=== PATIENT | female | born 1965 | race Caucasian/White ===

== ENCOUNTER 2023-07-10 13:19 | Outpatient (OUT) | payer BC, SELFPAY ==
[2023-07-10 10:20] LABS: Internal Control Within Normal Limits; Respiratory Syncytial Virus Not Detected (NOT DETECTE); SARS-CoV-2 Ag POSITIVE (NEGATIVE)
[2023-07-10 10:21] LABS: Influenza Virus A Antigen Negative; Influenza Virus B Antigen Negative; Internal Control Within Normal Limits
== END 2023-07-10 13:20 | disposition home or self-care (01) ==
LOC: LAB 13:19
PROVIDERS: PCP Family Medicine; Visit Provider Family Medicine
DX: R05.9 Cough, unspecified (principal)
CPT/HCPCS: 87420; 87804; 87811

== ENCOUNTER 2024-02-05 16:01 | Outpatient (OUT) | payer BC, SELFPAY ==
--- NOTE | 2024-02-05 16:05 | MM_ITS ---
Patient Name: SOCORRO HARRIS MR#: [id number] : 1965 Exam Date: 02/05/2024 Ordering Doctor: DR DENNIS JAMES M.D. RADIOLOGY REPORT PROCEDURE: MM TOMOSYNTHESIS SCREENING BI COMPARISON: MG MAMM SCREEN 3D JB CAD, 02/01/2023. MG MAMM SCREEN JB W CAD, 01/01/2020. MG MAMM SCREEN JB W CAD, 01/11/2017. MG MAMM JB DIAG W CAD DIG, 06/03/2015. INDICATIONS: screening Calculator Name NCI Breast Cancer Risk Assessment Tool 5 Year Breast Cancer Risk 1.00% Lifetime Breast Cancer Risk 6.80% Personal Breast Cancer No Personal Ovarian Cancer No Treatments None Family Cancers None LOCATION: [facility] BREAST COMPOSITION: The breasts are heterogeneously dense,which may obscure small masses. FINDINGS: DIAGNOSTIC CATEGORY 1--NEGATIVE. RIGHT BREAST: No significant suspicious finding. No significant change has occurred. LEFT BREAST: No significant suspicious finding. No significant change has occurred. RECOMMENDATIONS: ROUTINE MAMMOGRAM AND CLINICAL EVALUATION IN 12 MONTHS. PLEASE NOTE: A NORMAL MAMMOGRAM DOES NOT EXCLUDE THE POSSIBILITY OF BREAST CANCER. A CLINICALLY SUSPICIOUS PALPABLE LUMP SHOULD BE BIOPSIED. Dictated by: Alex Ornelas M.D. on 02/06/2024 at 13:39 Approved by: Alex Ornelas M.D. on 02/06/2024 at 13:43
== END 2024-02-05 16:02 | disposition home or self-care (01) ==
LOC: MAMMO 16:01
PROVIDERS: PCP Family Medicine; Visit Provider Family Medicine
DX: Z12.31 Encounter for screening mammogram for malignant neoplasm of breast (principal)
CPT/HCPCS: 77063; 77067

== ENCOUNTER 2025-05-21 13:11 | Outpatient (OUT) | payer BC, SELFPAY ==
--- OUTSIDE RECORDS SUMMARY | 2025-05-21 13:16 | XMS_ITS | Encounter Summary ---
Author Organization [facility] Address [address] [facility] [place] [address] Care Team Providers Care Janitorial Cleaner Name Role Phone Jaime Segura MD Primary Care Provider Jaime Segura MD Unavailable Jenny Srinivasan FUEL MANAGER Unavailable Jaime Segura MD Unavailable Encounter Details Date Type Department Care Team (Late Contact Info) Description 07/31/2023 Abstract [facility] [place] [facility] [address] [facility] 110 [place] [phone] Jaime Segura MD [address] [facility] 110 [place] [address] Social History Tobacco Use Types Packs/Day Years Used Date Smoking Tobacco: Never Smokeless Tobacco: Never Tobacco Cessation:Counseling Given: Not Answered Alcohol Use Standard Drinks/Week Comments Not Currently 0 (1 standard drink = 0.6 oz pure alcohol) caffeine: 1-2 cups per day soda Comments Unknown Sex and Gender Information Value Date Recorded Sex Assigned at Not on file Legal Sex Female 7:00 PM EDT Gender Identity Not on file Sexual Orientation Not on file documented as of this encounter Plan of Treatment Upcoming Encounters Date Type Department Care Team (Late Contact Info) Description 08/17/2025 2:30 PM EST Office Visit [facility] [place] [facility] [address] [facility] 110 [place] [phone] Jaime Segura MD [address] [facility] 110 [place] [address] documented as of this encounter Visit Diagnoses Not on filedocumented in this encounter Care Teams Janitorial Cleaner Relationship Specialty Start Date End Date Jaime Segura MD [address] [facility] 110 [place] [address] PCP - General Family Medicine 02/20/23 Jaime Segura MD [address] [facility] 110 [place] [address] PCP - [place] [employer] 03/15/23 Jenny Srinivasan NP [address] [facility] 110 [place] [address] PCP - [place] [employer] 03/15/25 Jaime Segura MD [address] [facility] 110 [place] [address] PCP - [place] [employer] 04/14/25 documented as of this encounter
--- OUTSIDE RECORDS SUMMARY | 2025-05-21 13:16 | XMS_ITS | Encounter Summary ---
Author Organization [facility] Address [address] [facility] [place] [address] Care Team Providers Care Securities Dealer Name Role Phone Jaime Segura MD Primary Care Provider Jaime Segura MD Unavailable Jenny Srinivasan LINER WORKER Unavailable Jaime Segura MD Unavailable Encounter Details Date Type Department Care Team (Late Contact Info) Description 08/06/2024 Abstract [facility] [place] [facility] 112 [facility] 110 [place] [phone] Jaime Segura MD [address] [facility] 110 [place], [place] [phone] Social History Tobacco Use Types Packs/Day Years Used Date Smoking Tobacco: Never Smokeless Tobacco: Never Alcohol Use Standard Drinks/Week Comments Not Currently [...] PM EST Office Visit [facility] [place] [facility] [address] [facility] 110 [place] [phone] Jaime Segura MD [address] [facility] 110 [place], [place] [phone] documented as of this encounter Visit Diagnoses Not on filedocumented in this encounter Care Teams Securities Dealer Relationship Specialty Start Date End Date Jaime Segura MD [address] [facility] 110 [place] [address] PCP - General Family Medicine 02/20/23 Jaime Segura MD [address] [facility] 110 [place] [address] PCP - [place] [employer] 03/15/23 Jenny Srinivasan NP [address] [facility] [address] [place] [address] PCP - [place] [employer] 03/15/25 Jaime Segura MD [address] [facility] 110 [place] [address] PCP - [place] [employer] 04/14/25 documented as of this encounter
--- OUTSIDE RECORDS SUMMARY | 2025-05-21 13:16 | XMS_ITS | Encounter Summary ---
Author Organization [facility] Address [address] [facility] [place] [address] Care Team Providers Care Cooler Tender Name Role Phone Jaime Segrua MD Primary Care Provider [phone] Jaime Segura MD Unavailable Jenny Srinivasan TEST OPERATOR Unavailable Jaime Segura MD Unavailable Encounter Details Date Type Department Care Team (Late st Contact Info) Description 07/10/2023 Orders Only [facility] [place] [facility] [address] [facility] [address] [place] [phone] A, Unknown Practice [address] [place], [place] [phone] Social History Tobacco Use Types Packs/Day Years Used Date Smoking Tobacco: Never Assessed Comments Unknown Sex and Gender Information Value Date Recorded Sex Assigned at Not on file Legal Sex Female 7:00 PM EDT Gender Identity Not on file Sexual Orientation Not on file documented as of this encounter Plan of Treatment Upcoming Encounters Date Type Department Care Team (Late st Contact Info) Description 08/17/2025 2:30 PM EST Office Visit [facility] [place] [facility] [address] [facility] [address] [place] [phone] Jaime Segura MD [address] [facility] [address] [place] [address] documented as of this encounter Procedures Procedure Name Priority Date/Time Associated Diagnosis Comments SCANNED LABS Routine 07/10/2023 2:05 PM EDT documented in this encounter Results * SCANNED LABS (07/10/2023 2:05 PM EDT) us Unknown Practice A LAB CHG PERFORMABLES Final Re sult documented in this encounter Visit Diagnoses Not on filedocumented in this encounter Care Teams Cooler Tender Relationship Specialty Start Date End Date Jaime Segura MD [address] [facility] 110 [place] [address] PCP - General Family Medicine 02/20/23 Jaime Segura MD [address] [facility] 110 [place] [address] PCP - [place] [employer] 03/15/23 Jenny Srinivasan, TEST OPERATOR [address] [facility] 110 [place] [address] PCP - [place] [employer] 03/15/25 Jaime Segura MD [address] [facility] 110 [place] [address] PCP - [place] [employer] 04/14/25 documented as of this encounter
--- OUTSIDE RECORDS SUMMARY | 2025-05-21 13:16 | XMS_ITS | Encounter Summary ---
Author Organization [facility] Address [address] [facility] [place] [address] Care Team Providers Care Filler Machine Operator Name Role Phone Jaime Segura MD Primary Care Provider Jaime Segura MD Unavailable Jenny Srinivasan OFFSHORE WIND TURBINE TECHNICIAN Unavailable Jaime Segura MD Unavailable Encounter Details Date Type Department Care Team (Late Contact Info) Description 11/07/2023 Abstract [facility] [place] [facility] 112 [facility] 110 [place] [phone] Jaime Segura MD [address] [facility] 110 [place], [place] [phone] Social History Tobacco Use Types Packs/Day Years [...] PM EST Office Visit [facility] [place] [facility] [address] [facility] 110 [place] [phone] Jaime Segura MD [address] [facility] 110 [place], [place] [phone] documented as of this encounter Visit Diagnoses Not on filedocumented in this encounter Care Teams Filler Machine Operator Relationship Specialty Start Date End Date Jaime Segura MD [address] [facility] 110 [place] [address] PCP - General Family Medicine 02/20/23 Jaime Segura MD [address] [facility] 110 [place] [address] PCP - [place] [employer] 03/15/23 Jenny Srinivasan NP [address] [facility] 110 [place] [address] PCP - [place] [employer] 03/15/25 Jaime Segura MD [address] [facility] 110 [place] [address] PCP - [place] [employer] 04/14/25 documented as of this encounter
--- OUTSIDE RECORDS SUMMARY | 2025-05-21 13:16 | XMS_ITS | Clinical Summary ---
Author Organization [employer] [facility] tem Address [id number] [address] [id number] Care Team Providers Care Vice President Financial Name Role Phone Jaime Segura MD Primary Care Provider [phone] Social History Tobacco Use Types Packs/Day Years Used Date Smoking Tobacco: Never Assessed Childcare Answer Date Recorded Childcare Unknown 03/26/2019 Employment Answer Date Recorded Employment Unknown 03/26/2019 Purpose - Life Answer Date Recorded Purpose and direction in life Unknown Comments Unknown Sex and Gender Information Value Date Recorded Sex Assigned at Not on file Legal Sex Female 11:55 AM EDT Gender Identity Not on file Sexual Orientation Not on file Plan of Treatment Health Maintenance Due Date Last Done Comments Depression Screening 1979 Tobacco Screening 1979 Adult BMI Screening 1985 DTaP,Tdap and Td Vaccines (1 - Tdap) 1986 Pap Smear 1988 Zoster (Shingles) Vaccine (1 of 2) 2017 Influenza Vaccine 06/15/2025 Medical Devices Not on file Insurance [employer] Care Teams Vice President Financial Relationship Specialty Start Date End Date Jaime Segura MD [place] [address] PCP - General Family Medicine 02/27/20
--- OUTSIDE RECORDS SUMMARY | 2025-05-21 13:16 | XMS_ITS | Clinical Summary ---
Author Organization [facility] Address [address] [place] [address] Care Team Providers Care Senior Systems Engineer Name Role Phone Jaime James MD Primary Care Provider [phone] Jaime James MD Unavailable Allergies No known active allergies Medications Carbatrol 200 MG 12 hr capsuleIndicatio ns:Nonintractabl e epilepsy without status epilepticus, unspecified epilepsy type (HCC) TAKE 1 CAPSULE BY MOUTH EVERY DAY IN THE MORNING AND AT BEDTIME 60 capsule 08/01/20 24 Active losartan (Cozaar) 100 MG tabletIndication s:Essential (primary) hypertension Take 1 tablet (100 mg) by mouth Daily 100 tablet 2 07/31/20 24 025 Active hydroCHLOROthiaz isak (HYDRODiuril) 25 MG tabletIndication s:Essential (primary) hypertension Take 1 tablet (25 mg) by mouth Daily 100 tablet 2 07/31/20 24 025 Active lisinopril 40 MG tabletIndication s:Essential (primary) hypertension Take 1 tablet (40 mg) by mouth Daily 90 tablet 1 12/01/19 25 Active dicyclomine (Bentyl) 10 MG capsuleIndicatio ns:Gastroesophag eal reflux disease with esophagitis without hemorrhage TAKE 1 CAPSULE BY MOUTH IN THE MORNING, NOON, EVENING AND AT BEDTIME 360 capsule 01/21/20 25 Active Carbatrol 200 MG 12 hr capsuleIndicatio ns:Nonintractabl e epilepsy without status epilepticus, unspecified epilepsy type (HCC) TAKE 1 CAPSULE BY MOUTH EVERY MORNING AND BEFORE BEDTIME. DO NOT CRUSH OR CHEW 60 capsule 3 03/30/20 25 Active cloNIDine (Catapres) 0.1 MG tabletIndication s:Essential (primary) hypertension TAKE 1 TABLET BY MOUTH EVERY DAY 100 tablet 3 04/27/20 25 Active cloNIDine (Catapres) 0.1 MG tabletIndication s:Essential (primary) hypertension Take 2 tablets (0.2 mg) by mouth Daily 60 tablet 3 07/31/20 24 025 Discontinued Active Problems Problem Noted Date Diagnosed Date Viral upper respiratory tract infection 02/13/20 Assessment & Plan (02/12/2025 3:07 PM EDT): Supportive Care Increase fluids, Tylenol, Ibuporfen, Christianne''''s vapor vapor rub, christianne''''s humidifier. Watch for bacterial infections. Mucinex D Lab test positive for detection of COVID-19 viru s 07/17/2023 Assessment & Plan (07/17/2023 3:52 PM EDT): Patient is doing better No current respiratory issues Acute seasonal allergic rhinitis due to pollen 1 H. pylori infection 07/16/2023 Epilepsy 05/05/2023 Essential hypertension 05/05/2023 Assessment & Plan (02/12/2025 2:54 PM EDT): Our specific goals, for your hypertension, is to keep your blood pressure less than 140/90, and the importance of weight control. We made recommendations on how to control your blood pressure, and minimize your risk of these copmplications. We also discussed your current barriers to a healthy living and importance of healthy diet and exercise. Prior to your visit today we have reviewed your chart and formed a plan to assist with providing you the best possible care. We reviewed the possible complications of hypertension including, stroke, heart failure and kidney impairment. In addition, we discussed your medications, the importance of taking them as prescribed. DASH diet handouts Assessment & Plan (07/17/2023 3:50 PM EDT): Our specific goals, for your hypertension, is to keep your blood pressure less than 140/90, and the importance of weight control. We made recommendations on how to control your blood pressure, and minimize your risk of these copmplications. We also discussed your current barriers to a healthy living and importance of healthy diet and exercise. Prior to your visit today we have reviewed your chart and formed a plan to assist with providing you the best possible care. We reviewed the possible complications of hypertension including, stroke, heart failure and kidney impairment. In addition, we discussed your medications, the importance of taking them as prescribed. DASH diet handouts Fibrocystic breast changes 05/05/2023 Reflux esophagitis 05/05/2023 Hot flashes due to menopause 05/05/2023 Slow transit constipation 05/05/2023 Submandibular abscess 02/13/2014 Breast disorder 09/23/2008 Allergic rhinitis 09/17/2008 Simple febrile convulsions 09/17/2008 Encounters Date Type Department Care Team Description 04/27/2025 Refill [facility] [place] [facility] [address] [facility] 110 [place] [address] Jaime James MD Essential (primary) hypertension 03/29/2025 [facility] [place] [facility] [address] [facility] 110 [place] [address] Jaime James MD Nonintractable epilepsy without status epilepticus, unspecified epilepsy type (HCC) from Last 3 Months Immunizations Immunization Administration Dates Next Due Influenza, injectable, quadrivalent 09/10/2020,1 10/21/2015,08/31/2014 Influenza, injectable, quadr ivalent, preservative free 09/19/2022,08/21/2016 Pfizer Purple Cap SARS-CoV-2 Vaccination 021 Family History Medical History Relation Name Comments Heart disease Father Relation Name Status Comments Father Mother Alive Social History Tobacco Use Types Packs/Day Years Used Date Smoking Tobacco: Never Smokeless Tobacco: Never Tobacco Cessation:Counseling Given: Not Answered Alcohol Use Standard Drinks/Week Comments Not Currently 0 (1 standard drink = 0.6 oz pure alcohol) caffeine: 1-2 cups per day soda PHQ-2 Answer Date Recorded Patient Health Questionnaire-2 Score 0 02/12/2025 Comments Unknown Sex and Gender Information Value Date Recorded Sex Assigned at Not on file Legal Sex Female 7:00 PM EDT Gender Identity Not on file Sexual Orientation Not on file Last Filed Vital Signs Vital Sign Reading Time Taken Comments Blood Pressure 110/68 02/12/2025 2:33 PM EDT Pulse 73 02/12/2025 2:33 PM EDT Temperature - - Respiratory Rate - - Oxygen Saturation 95% 02/12/2025 2:33 PM EDT Inhaled Oxygen Concentration - - Weight 60.3 kg (133 lb) 02/12/2025 2:33 PM EDT Height 157.5 cm (5' 2 ) 02/12/2025 2:33 PM EDT Body Mass Index 24.33 02/12/2025 2:33 PM EDT Plan of Treatment Upcoming Encounters Date Type Department Care Team (Late st Contact Info) Description 08/17/2025 2:30 PM EST Office Visit [facility] [place] [facility] [address] [facility] 110 [place] [phone] Jaime James MD [address] [place] [address] [facility] 110 [place] [address] Health Maintenance Due Date Last Done Comments CT Colonography 1967 FIT-DNA 1967 FIT 1967 FOBT 1965 Sigmoidoscopy 1967 Pap Smear 1988 Cervical Cancer Screening 1997 HPV/Cotest 1997 Mammogram 02/05/2025 02/06/2024, 01/14, 01/02/2020, Additional history exists Influenza Vaccine (#1) 2025 , 09/10/2020, 08/21/2016, Additional history exists Colonoscopy 04/26/2030 04/26/2020 Colorectal Cancer Screening 04/26/2030 Procedures Procedure Name Priority Date/Time Associated Diagnosis Comments MM TOMOSYNTHESIS SCREENING BI 02/06/2024 1:43 PM EDT COLONOSCOPY Routine 04/26/2020 12:00 PM EDT from Last 3 Months or Most Recently Relevant to Health Maintenance Results * MM TOMOSYNTHESIS SCREENING BI (02/06/2024 1:43 PM EDT) Anatomical Region Laterality Modality Other 02/06/2024 1:43 PM EDT Narrative 02/06/2024 1:44 [place] [address] Mammography Report Signed Patient: DEBI HARRIS MR#: [id number] : 1965 Acct:[id number] Age/Sex: 58 / F ADM Date: 02/05/24 Loc: MAMMO Attending Dr: JAIME JAMES Ordering Physician: JAIME JAMES Results: Date of Service: 02/05/24 Follow Up: Procedure(s): MM tomosynthesis screening BI Accession Number(s): [id number] cc: ERIKASHERKYM Patient Name: DEBI HARRIS MR#: [id number] : 1965 Exam Date: 02/05/2024 Ordering Doctor: DR JAIME JAMES M.D. RADIOLOGY REPORT PROCEDURE: MM TOMOSYNTHESIS SCREENING BI COMPARISON: MG MAMM SCREEN 3D BJ CAD, 02/01/2023. MG MAMM SCREEN JB W CAD, 01/01/2020. MG MAMM SCREEN JB W CAD, 01/11/2017. MG MAMM JB DIAG W CAD DIG, 06/03/2015. INDICATIONS: screening Calculator Name NCI Breast Cancer Risk Assessment Tool 5 Year Breast Cancer Risk 1.00% Lifetime Breast Cancer Risk 6.80% Personal Breast Cancer No Personal Ovarian Cancer No Treatments None Family Cancers None LOCATION: [facility] BREAST COMPOSITION: The breasts are heterogeneously dense,which may obscure small masses. FINDINGS: DIAGNOSTIC CATEGORY 1--NEGATIVE. RIGHT BREAST: No significant suspicious finding. No significant change has occurred. LEFT BREAST: No significant suspicious finding. No significant change has occurred. RECOMMENDATIONS: ROUTINE MAMMOGRAM AND CLINICAL EVALUATION IN 12 MONTHS. PLEASE NOTE: A NORMAL MAMMOGRAM DOES NOT EXCLUDE THE POSSIBILITY OF BREAST CANCER. A CLINICALLY SUSPICIOUS PALPABLE LUMP SHOULD BE BIOPSIED. Dictated by: Alex Ornelas M.D. on 02/06/2024 at 13:39 Approved by: Alex Ornelas M.D. on 02/06/2024 at 13:43 Dictated By: Alex Ornelas M.D. Signed By: 02/06/24 1344 DD/ 1343 TD/TT: Wood Machine Carver: Procedure Note Radiology, Radiologist, MD - 02/06/2024 [place] [address] Mammography Report Signed Patient: DEBI HARRIS MMR#: [id number] : 1965Acct:[id number] Age/Sex: 58 / FADM Date: 02/05/24 Loc: MAMMO Attending Dr: JAIME JAMES Ordering Physician: Aron JAMESults: Date of Service: 02/05/24Follow Up: Procedure(s): MM tomosynthesis screening BI Accession Number(s): [id number] cc: ERIKASHERKYM Patient Name: DEBI HARRIS MR#: [id number] : 1965 Exam Date: 02/05/2024 Ordering Doctor: DR JAIME JAMES M.D. RADIOLOGY REPORT PROCEDURE: MM TOMOSYNTHESIS SCREENING BI COMPARISON: MG MAMM SCREEN 3D JB CAD, 02/01/2023. MG MAMM SCREEN BILW CAD, 01/01/2020. MG MAMM SCREEN JB W CAD, 01/11/2017. MG MAMM JB DIAG WCAD DIG, 06/03/2015. INDICATIONS: screening Calculator Name NCI Breast Cancer Risk Assessment Tool 5 Year Breast Cancer Risk 1.00% Lifetime Breast Cancer Risk 6.80% Personal Breast Cancer No Personal Ovarian Cancer No Treatments None Family Cancers None LOCATION: [facility] BREAST COMPOSITION: The breasts are heterogeneously dense,which may obscure small masses. FINDINGS: DIAGNOSTIC CATEGORY 1--NEGATIVE. RIGHT BREAST: No significant suspicious finding. No significant changehas occurred. LEFT BREAST: No significant suspicious finding. No significant changehas occurred. RECOMMENDATIONS: ROUTINE MAMMOGRAM AND CLINICAL EVALUATION IN 12 MONTHS. PLEASE NOTE: A NORMAL MAMMOGRAM DOES NOT EXCLUDE THE POSSIBILITY OFBREAST CANCER. A CLINICALLY SUSPICIOUS PALPABLE LUMP SHOULD BE BIOPSIED. Dictated by: Alex Ornelas M.D. on 02/06/2024 at 13:39 Approved by: Alex Ornelas M.D. on 02/06/2024 at 13:43 Dictated By: Alex Ornelas M.D. Signed By:02/06/24 1344 DD/ 1343 TD/TT: Wood Machine Carver: Jaime James MD [facility] Final Result * Colonoscopy (04/26/2020 12:00 PM EDT) Anatomical Region Laterality Modality Endoscopy 04/26/2020 12:0 0 PM EDT Narrative 04/26/2020 12:00 PM EDT PERFORMED AT [facility] LOCATION:[id number] normal Procedure Note CONVERSION, GENERIC - 02/28/2023 PERFORMED AT [facility] LOCATION:[id number] normal Jaime James MD ENDOSCOPY PROCEDURE ORDERABLES F inal Result from Last 3 Months or Most Recently Relevant to Health Maintenance Insurance [facility] Care Teams Senior Systems Engineer Relationship Specialty Start Date End Date Jaime James MD [address] [place] [address] [facility] 110 [place] [address] PCP - General Family Medicine 02/20/23 Jaime James MD [address] [facility] 110 [place] [address] PCP - [place] [employer] 04/14/25
--- OUTSIDE RECORDS SUMMARY | 2025-05-21 13:16 | XMS_ITS | Encounter Summary ---
Author Organization [facility] Address [address] [facility] [place] [address] Care Team Providers Care Manager Utilization Review Name Role Phone Jaime Segura MD Primary Care Provider [phone] Jaime Segura MD Unavailable Jenny Srinivasan SUPERVISOR ORCHARD Unavailable Jaime Segura MD Unavailable Encounter Details Date Type Department Care Team (Late Contact Info) Description 08/11/2024 Abstract [facility] [place] [facility] 112 [facility] 110 [place] [phone] Jaime Segura MD [address] [place] [facility] 110 [place], [place] [phone] Social History Tobacco Use Types Packs/Day Years [...] PM EST Office Visit [facility] [place] [facility] [address] [facility] 110 [place] [phone] Jaime Segura MD [address] [facility] 110 [place], [place] [phone] documented as of this encounter Visit Diagnoses Not on filedocumented in this encounter Care Teams Manager Utilization Review Relationship Specialty Start Date End Date Jaime Segura MD [address] [facility] 110 [place] [address] PCP - General Family Medicine 02/20/23 Jaime Segura MD [address] [facility] 110 [place] [address] PCP - [place] [employer] 03/15/23 Jenny Srinivasan NP [address] [facility] 110 [place] [address] PCP - [place] 03/15/25 Jaime Segura MD [address] [facility] 110 [place] [address] PCP - [place] [employer] 04/14/25 documented as of this encounter
--- OUTSIDE RECORDS SUMMARY | 2025-05-21 13:16 | XMS_ITS | Encounter Summary ---
Author Organization [facility] Address [address] [facility] [place] [address] Care Team Providers Care Cd Mixer Name Role Phone Jaime James MD Primary Care Provider [phone] Jaime James MD Unavailable Jenny Srinivasan PATIENT CARE PROVIDER Unavailable Jaime James MD Unavailable Encounter Details Date Type Department Care Team (Late st Contact Info) Description 02/06/2024 Clinisync Result Encounter [facility] External Department Unsolicited Jaime James MD [address] [facility] 110 [place] [address] Social History Tobacco Use Types Packs/Day Years [...] 08/17/2025 2:30 PM EST Office Visit [facility] [place] [facility]oy [address] [facility] 110 [place] [phone] Jaime James MD [address] [facility] 110 [place], [place] [id number] documented as of this encounter Procedures Procedure Name Priority Date/Time Associated Diagnosis Comments MM TOMOSYNTHESIS SCREENING BI 02/06/2024 1:43 PM EDT documented in this encounter Results * MM TOMOSYNTHESIS SCREENING BI (02/06/2024 1:43 PM EDT) Anatomical Region Laterality Modality Other 02/06/2024 1:43 PM EDT Narrative 02/06/2024 1:44 [place] [address] Mammography Report Signed Patient: SOCORRO HARRIS MR#: [id number] : 1965 Acct:[id number] Age/Sex: 58 / F ADM Date: 02/05/24 Loc: MAMMO Attending Dr: JAIME JAMES Ordering Physician: JAIME JAMES Results: Date of Service: 02/05/24 Follow Up: Procedure(s): MM tomosynthesis screening BI Accession Number(s): [id number] cc: JAIME JAMES Patient Name: SOCORRO HARRIS MR#: [id number] : 1965 Exam Date: 02/05/2024 Ordering Doctor: DR JAIEM JAMES M.D. RADIOLOGY REPORT PROCEDURE: MM TOMOSYNTHESIS SCREENING BI COMPARISON: MG MAMM SCREEN 3D JB CAD, 02/01/2023. MG MAMM SCREEN JB W CAD, 01/01/2020. MG MAMM SCREEN JB W CAD, 01/11/2017. MG MAMM JB DIAG W CAD DIG, 06/03/2015. INDICATIONS: screening Calculator Name NCI Breast Cancer Risk Assessment Tool 5 Year Breast Cancer Risk 1.00% Lifetime Breast Cancer Risk 6.80% Personal Breast Cancer No Personal Ovarian Cancer No Treatments None Family Cancers None LOCATION: [facility] BREAST COMPOSITION: The breasts are heterogeneously dense,which [...] Signed By: 02/06/24 1344 DD/ 1343 TD/TT: Kickboxing Instructor: Procedure Note Radiology, Radiologist, MD - 02/06/2024 [place] [address] Mammography Report Signed Patient: SOCORRO HARRIS MMR#: [id number] : 1965Acct:[id number] Age/Sex: 58 / FADM Date: 02/05/24 Loc: MAMMO Attending Dr: JAIME JAMES Ordering Physician: Aron JAMESults: Date of Service: 02/05/24Follow Up: Procedure(s): MM tomosynthesis screening BI Accession Number(s): [id number] cc: JAIME JAMES Patient Name: SOCORRO HARRIS MR#: [id number] : 1965 Exam Date: 02/05/2024 Ordering Doctor: [...] Treatments None Family Cancers None LOCATION: [facility] BREAST COMPOSITION: The breasts are heterogeneously dense,which [...] M.D. Signed By:02/06/24 1344 DD/ 1343 TD/TT: Kickboxing Instructor: Jaime James MD [facility] Final Result documented in this encounter Visit Diagnoses Not on filedocumented in this encounter Care Teams Cd Mixer Relationship Specialty Start Date End Date Jaime James MD [address] [facility] 110 [place] [address] PCP - General Family Medicine 02/20/23 Jaime James MD [address] [facility] 110 [place] [address] PCP - [place] [employer] 03/15/23 Jenny Srinivasan NP [address] [facility] 110 [place] [address] PCP - [place] [employer] 03/15/25 Jaime James MD [address] [facility] 110 [place] [address] PCP - [place] [employer] 04/14/25 documented as of this encounter
--- OUTSIDE RECORDS SUMMARY | 2025-05-21 13:16 | XMS_ITS | Encounter Summary ---
Author Organization [facility] Address [address] [facility] [place] [address] Care Team Providers Care Bioinformatics Technician Name Role Phone Jaime Segura MD Primary Care Provider [phone] Jaime Segura MD Unavailable Jenny Srinivasan CHIEF SOLUTION ARCHITECT Unavailable Jaime Segura MD Unavailable Encounter Details Date Type Department Care Team (Late st Contact Info) Description 05/17/2023 Abstract [facility] [place] Malloy [address] [facility] 110 [place] [phone] Jaime Segura MD [address] [facility] 110 [place] [address] Social History Tobacco Use Types Packs/Day Years [...] Visit [facility] [place] Malloy [address] [facility] 110 [place] [phone] Jaime Segura MD [address] [facility] 110 [place] [address] documented as of this encounter Visit Diagnoses Not on filedocumented in this encounter Care Teams Bioinformatics Technician Relationship Specialty Start Date End Date Jaime Segura MD [address] [facility] 110 [place] [address] PCP - General Family Medicine 02/20/23 Jaime Segura MD [address] [facility] 110 [place] [address] PCP - [employer] 03/15/23 Jenny Srinivasan NP [address] [facility] 110 [place] [address] PCP - [employer] 03/15/25 Jaime Segura MD [address] [facility] 110 [place] [address] PCP - [employer] 04/14/25 documented as of this encounter
--- OUTSIDE RECORDS SUMMARY | 2025-05-21 13:16 | XMS_ITS | Clinical Summary ---
Author Organization [facility] Address [address] [place] [address] Care Team Providers Care Environmental Analyst Name Role Phone Unavailable Primary Care Provider Unavailabl e Allergies No known active allergies Medications ibuprofen (ADVIL;MOTRIN) 600 MG tablet Take 600 mg by mouth every 6 hours as needed for Pain. Active carBAMazepine (TEGRETOL) 200 MG tablet Take 200 mg by mouth every 12 hours. Active ferrous sulfate 325 (65 FE) MG tablet Take 325 mg by mouth 2 times daily. Active oxyCODONE-acetam inophen (PERCOCET) 5-325 MG per tablet Take 1 tablet by mouth every 4 hours as needed for Pain (1-2 tabs prn q4hrs). Active methylPREDNISolo ne (MEDROL DOSEPACK) 4 MG tablet Take by mouth as directed. 21 tablet 0 02/14/2014 Active Active Problems Problem Noted Date Diagnosed Date Submandibular abscess 02/13/2014 Seizure disorder Family History Medical History Relation Name Comments Coronary Art Dis Father Stroke Mother Relation Name Status Comments Father Mother Social History Tobacco Use Types Packs/Day Years Used Date Smoking Tobacco: Never Comments Unknown Sex and Gender Information Value Date Recorded Sex Assigned at Not on file Legal Sex Female 5:42 PM EST Gender Identity Not on file Sexual Orientation Not on file Last Filed Vital Signs Vital Sign Reading Time Taken Comments Blood Pressure 104/48 02/14/2014 7:00 AM EDT Pulse 60 02/14/2014 7:00 AM EDT Temperature 36.6 C (97.9 F) 02/14/2014 7:00 AM EDT Respiratory Rate 18 02/14/2014 7:00 AM EDT Oxygen Saturation 98% 02/14/2014 7:00 AM EDT Inhaled Oxygen Concentration - - Weight 61.7 kg (136 lb) 02/13/2014 11:10 AM EDT Height 154.9 cm (5' 1 ) 02/13/2014 11:10 AM EDT Body Mass Index 25.7 02/13/2014 11:10 AM EDT Plan of Treatment Not on file
--- OUTSIDE RECORDS SUMMARY | 2025-05-21 13:16 | XMS_ITS | Encounter Summary ---
Author Organization [facility] Address [address] [facility] [place] [address] Care Team Providers Care Tier Truck Driver Name Role Phone Jaime Segura MD Primary Care Provider [phone] Jaime Segura MD Unavailable Jenny Srinivasan NECK BAND OPERATOR Unavailable Jaime Segura MD Unavailable Encounter Details Date Type Department Care Team (Late st Contact Info) Description 03/26/2023 Abstract [facility] [place] Malloy [address] [facility] 110 [place] [phone] Jaime Segura MD [address] [facility] 110 [place] [address] Social History Tobacco Use Types Packs/Day Years [...] Visit [facility] [place] Malloy [address] [facility] 110 [place] [address] Jaime Segura MD [address] [facility] [address] [place] [address] documented as of this encounter Visit Diagnoses Not on filedocumented in this encounter Care Teams Tier Truck Driver Relationship Specialty Start Date End Date Jaime Segura MD [address] [facility] 110 [place] [address] PCP - General Family Medicine 02/20/23 Jaime Segura MD [address] [facility] 110 [place] [address] PCP - [place] [employer] 03/15/23 Jenny Srinivasan NP [address] [facility] 110 [place] [address] PCP - [place] [employer] 03/15/25 Jaime Segura MD [address] [facility] 110 [place] [address] PCP - [place] [employer] 04/14/25 documented as of this encounter
--- NOTE | 2025-05-21 13:21 | MM_ITS ---
Patient Name: SOCORRO HARRIS MR#: [id number] : 1965 Exam Date: 05/21/2025 Ordering Doctor: DR DENNIS JAMES M.D. RADIOLOGY REPORT PROCEDURE: MM TOMOSYNTHESIS SCREENING BI COMPARISON: MM TOMOSYNTHESIS SCREENING BI, 02/05/2024. MG MAMM SCREEN 3D JB CAD, 02/01/2023. MG MAMM SCREEN JB W CAD, 01/01/2020. MG MAMM JB DIAG W CAD DIG, 06/03/2015. INDICATIONS: Screening Calculator Name NCI Breast Cancer Risk Assessment Tool 5 Year Breast Cancer Risk 1.10% Lifetime Breast Cancer Risk 6.70% Personal Breast Cancer No Personal Ovarian Cancer No Treatments None Family Cancers None LOCATION: [facility] BREAST COMPOSITION: The breasts are heterogeneously dense, which may obscure small masses. FINDINGS: DIAGNOSTIC CATEGORY 2--BENIGN FINDING: RIGHT BREAST: No significant suspicious finding. Benign-appearing calcifications are present. Benign-appearing lymph nodes are noted along the chest wall. LEFT BREAST: No significant suspicious finding. Benign-appearing lymph nodes are noted along the chest wall. RECOMMENDATIONS: ROUTINE MAMMOGRAM AND CLINICAL EVALUATION IN 12 MONTHS. PLEASE NOTE: A NORMAL MAMMOGRAM DOES NOT EXCLUDE THE POSSIBILITY OF BREAST CANCER. A CLINICALLY SUSPICIOUS PALPABLE LUMP SHOULD BE BIOPSIED. Dictated by: Blaine Jennings MD on 05/21/2025 at 15:12 Approved by: Blaine Jennings MD on 05/21/2025 at 15:18
== END 2025-05-21 13:12 | disposition home or self-care (01) ==
PROVIDERS: PCP Family Medicine; Visit Provider Family Medicine
DX: Z12.31 Encounter for screening mammogram for malignant neoplasm of breast (principal)
CPT/HCPCS: 77063; 77067